=== PATIENT | male | born 1970 | race Native Hawaiian/Other Pacific Islander ===

== ENCOUNTER 2016-11-25 04:34 | Emergency (ER) | payer OTHER ==
[2016-11-25 05:02] VITALS: RESP 16; TEMP 98.9; O2SAT 98
[2016-11-25] MEDS ORDERED: Sodium Chloride 0.9% 1,000 ML IV STA (05:30)
--- NOTE | 2016-11-25 05:43 | ED PDOC ---
HPI: Abdomen Time Seen by Provider: 11/25/16 05:04 Chief Complaint (Nursing): Abdominal Pain Chief Complaint (Provider): Abdominal pain History Per: Patient History/Exam Limitations: no limitations Onset/Duration Of Symptoms: Hrs Outside of [place] travel?: No Current Symptoms Are (Timing): Still Present Severity: Moderate Location Of Pain/Discomfort: Periumbilical Quality Of Discomfort: Cramping Associated Symptoms: Nausea, Vomiting, Diarrhea. denies: Fever, Chills Additional History Per: Patient Additional Complaint(s): The patient is a 46yo male, presents to the ED for evaluation of multiple bouts of watery, non-bloody diarrhea since last night. Pt reports associated periumbilical cramping, reported as "on and off" and the cramping is worse with episodes of diarrhea. Additionally reports tonight pt had episodes of non- bloody vomiting, prompting his visit to the ED. Pt denies any fever, chills, known sick contacts or recent travels. Currently, the pt denies any other medical complaints. Past Medical History Reviewed: Historical Data, Nursing Documentation, Vital Signs Vital Signs: Last Vital Signs Temp 98.9 F 11/25/16 05:00 Pulse 76 11/25/16 05:00 Resp 16 11/25/16 05:00 BP 113/66 11/25/16 05:00 Pulse Ox 98 11/25/16 06:31 - Medical History PMH: No Chronic Diseases - Surgical History Surgical History: No Surg Hx - Family History Family History: States: No Known Family Hx - Living Arrangements Living Arrangements: With Family - Social History Current smoker - smoking cessation education provided: No Alcohol: None Drugs: Denies - Home Medications Home Medications: Ambulatory Orders Medication Instructions Recorded Dicyclomine [Dicyclomine HCl] 10 mg PO TID #15 cap 11/25/16 Ondansetron [Zofran Odt] 4 mg PO BID PRN #12 odt 11/25/16 - Allergies Allergies/Adverse Reactions: Allergies Allergy/AdvReac Type Severity Reaction Status Date / Time pollen extracts Allergy ITCHING Verified 11/25/16 05:00 Review of Systems ROS Statement: Except As Marked, All Systems Reviewed And Found Negative Constitutional: Negative for: Fever, Chills Gastrointestinal: Positive for: Nausea, Vomiting, Abdominal Pain, Diarrhea Physical Exam - Reviewed Nursing Documentation Reviewed: Yes Vital Signs Reviewed: Yes - Physical Exam Appears: Positive for: Well, Non-toxic, No Acute Distress Head Exam: Positive for: ATRAUMATIC, NORMAL INSPECTION, NORMOCEPHALIC Skin: Positive for: Normal Color Eye Exam: Positive for: Normal appearance Neck: Positive for: Normal, Supple Cardiovascular/Chest: Positive for: Regular Rate, Rhythm Respiratory: Positive for: Normal Breath Sounds. Negative for: Respiratory Distress Gastrointestinal/Abdominal: Positive for: Normal Exam, Soft. Negative for: Tenderness Extremity: Positive for: Normal ROM. Negative for: Deformity, Swelling Neurologic/Psych: Positive for: Alert, Oriented. Negative for: Motor/Sensory Deficits - Laboratory Results Result Diagrams: 11/25/16 05:35 11/25/16 05:35 - ECG O2 Sat by Pulse Oximetry: 98 (RA) Pulse Ox Interpretation: Normal - Progress Re-evaluation Time: 06:32 Condition: Re-examined, Improved Medical Decision Making Medical Decision Making: Time: 517 Impression: vomiting and diarrhea Differential: Acute gastroenteritis most likely viral; pancreatitis Plan: -- CMP -- CBC -- Lipase -- Bentyl 10 mg PO -- Zofran 4 mg IVP -- IV Fluids Scribe Attestation: Documented by Ashli Coffman acting as a scribe for Palomo James MD. Provider Attestation: All medical record entries made by the Scribe were at my direction and personally dictated by me. I have reviewed the chart and agree that the record accurately reflects my personal performance of the history, physical exam, medical decision making, and the department course for this patient. I have also personally directed, reviewed, and agree with the discharge instructions and disposition. Disposition - Clinical Impression Clinical Impression: Vomiting and diarrhea - Patient ED Disposition Is Patient to be Admitted: No Doctor Will See Patient In The: Office Counseled Patient/Family Regarding: Studies Performed, Diagnosis, Need For Followup - Disposition Referrals: Lindsay Agarwal MD [Primary Care Provider] - Disposition: Routine/Home Disposition Time: 06:28 Condition: GOOD Additional Instructions: Return for worsening. Drink plenty of gatorade at home. Follow up with your PCP in 2-3 days. Prescriptions: Dicyclomine [Dicyclomine HCl] 10 mg PO TID #15 cap Ondansetron [Zofran Odt] 4 mg PO BID PRN #12 odt PRN Reason: Nausea/Vomiting Instructions: Dehydration (ED), Gastroenteritis (ED)
[2016-11-25 06:00] LABS: BASO # 0.1 K/uL (0.0-0.2); BASO % 0.4 % (0.0-2.0); EOS # 0.1 K/uL (0.0-0.7); EOS % 0.9 % (0.0-4.0); HEMATOCRIT 41.8 % (35.0-51.0); LYMPH # 1.2 K/uL (1.0-4.3); LYMPH % 9.3 % (20.0-40.0); MEAN CORPUSCULAR HEMOGLOBIN 30.5 pg (27.0-31.0); MEAN CORPUSCULAR HGB CONC 33.2 g/dL (33.0-37.0); MONO % 7.8 % (0.0-10.0); NEUT # 10.6 K/uL (1.8-7.0); NEUT % 81.6 % (50.0-75.0); PLATELET COUNT 195 K/uL (130-400); RED CELL DISTRIBUTION WIDTH 13.2 % (11.5-14.5)
[2016-11-25 06:08] LABS: ALB/GLOB RATIO 1.3 (1.0-2.1); ALKALINE PHOSPHATASE 88 U/L (38-126); ALT/SGPT 74 U/L (21-72); AST/SGOT 68 U/L (17-59); BILIRUBIN,TOTAL 0.4 mg/dl (0.2-1.3); BLOOD UREA NITROGEN 21 mg/dl (9-20); CALCIUM 9.1 mg/dL (8.4-10.2); CARBON DIOXIDE 24 mmol/L (22-30); CHLORIDE 105 mmol/L (98-107); GFR AFRICAN-AMERICAN > 60; GLUCOSE,RANDOM 103 mg/dL (75-110); LIPASE 55 U/L (23-300); POTASSIUM 4.1 MMOL/L (3.6-5.0); SODIUM 139 mmol/l (132-148); TOTAL PROTEIN 7.4 G/DL (6.3-8.2)
[2016-11-25 06:44] VITALS: BP 112/70; PULSE 66
[2016-11-25 06:53] LABS: BASOPHIL 2 % (0-2); NEUTROPHIL 77 % (42-75); PLATELET CLUMPS PRESENT; TOTAL CELLS COUNTED 100
--- NOTE | 2016-11-29 11:34 | CARD ---
APPROVED REPORT EKG Measurement Heart [id number] <Conclusion> Normal sinus rhythm Normal ECG
== END 2016-11-25 06:46 | disposition home or self-care (01) ==
LOC: H.ER 04:34
DX: R11.10 Vomiting, unspecified (principal); R19.7 Diarrhea, unspecified